=== PATIENT | male | born 1990 | race Two or more races ===

== ENCOUNTER 2018-02-17 08:11 | Outpatient (CLI) | payer OTHER ==
--- NOTE | 2018-02-17 16:02 | MRI Report ---
Reason: HEADACHE Procedure Date: 02/17/2018 Accession Number: [id number] / [id number] Procedure: MRI - Brain W/O CPT Code: FULL RESULT: EXAM: MRI BRAIN WITHOUT CONTRAST EXAM DATE: 02/17/2018 09:21 AM. CLINICAL HISTORY: Headache. COMPARISON: None. TECHNIQUE: Multiplanar, multisequence T1-weighted and fluid-sensitive MR sequences of the brain were performed. Sequences optimized for routine evaluation. Other: None. IV Contrast: None. FINDINGS: Brain Volume: Normal for age. Parenchyma/Dura: No mass, acute infarct or hemorrhage. Normal fofana matter and white matter signal intensity is identified. Ventricles/Cisterns: The ventricles, sulci, and cisterns are unremarkable. No abnormal extra-axial fluid collection or hemorrhage. Orbits: Symmetric and unremarkable. Sella Turcica: The pituitary gland, cavernous sinuses, suprasellar cistern and optic chiasm are unremarkable. IAC: Symmetric and unremarkable. Vasculature: Normal signal flow void is seen in the major arterial structures at the skull base. Sinuses: No acute appearing sinus disease. Bones: No focal pathologic appearing marrow signal changes. Other: None. IMPRESSION: 1. Normal noncontrast MRI of the brain. No acute abnormality. [facility]
== END 2018-02-17 08:12 | disposition home or self-care (01) ==
LOC: DI 08:11
PROVIDERS: ATTEND Radiology Diagnostic Radiology
DX: R51 Headache (principal)
CPT/HCPCS: 70551

== ENCOUNTER 2018-09-03 16:34 | Outpatient (CLI) | payer OTHER | END 2018-09-03 16:35 | disposition critical access hospital (66) | LOC: EMS 16:34 | PROVIDERS: ATTEND Surgery | DX: S61.451A Open bite of right hand, initial encounter (principal); W54.0XXA Bitten by dog, initial encounter; Y93.K9 Activity, other involving animal care; Y92.009 Unspecified place in unspecified non-institutional (private) residence as the place of occurrence of the external cause | CPT/HCPCS: A0425; A0429 ==

== ENCOUNTER 2018-09-03 16:55 | Emergency (ER) | payer OTHER ==
[2018-09-03] MEDS ORDERED: AMPICILLIN/SULBACTAM 3 GM in SODIUM CHLORIDE 0.9% MINIBAG 100 ML IV STA (16:57)
--- NOTE | 2018-09-03 16:58 | ED Physician Documentation ---
PD HPI UPPER EXT INJURY - Stated complaint Stated Complaint: DOG BITE - History obtained from History obtained from: Patient - History of Present Illness Location: Right (His own healthy fully immunized dog bit him on the right hand while he was giving him medication at home just prior to arrival. He is up-to-date on tetanus.) Review of Systems Ten Systems: 10 systems reviewed and negative Constitutional: reports: Reviewed and negative Eyes: reports: Reviewed and negative Ears: reports: Reviewed and negative Nose: reports: Reviewed and negative PD PAST MEDICAL HISTORY - Past Medical History Past Medical History: No - Present Medications Home Medications: Ambulatory Orders Medication Instructions Recorded Confirmed Amox/Clav 875/125 [Augmentin] 1 each PO Q12H #20 tablet 09/03/18 Hydrocodone/Acetaminophen 1 - 2 each PO Q6H PRN #14 tablet 09/03/18 [Hydrocodon-Acetaminophen 5-325] - Social History Does the pt drink ETOH?: No Does the pt have substance abuse?: No - Family History Family history: reports: Non contributory PD ED PE NORMAL - Vitals Vital signs reviewed: Yes - General General: Alert and oriented X 3, No acute distress - HEENT HEENT: PERRL, EOMI - Neck Neck: Supple, no meningeal sign, No bony TTP - Cardiac Cardiac: RRR, No murmur - Respiratory Respiratory: No respiratory distress, Clear bilaterally - Abdomen Abdomen: Normal bowel sounds, Soft, Non tender - Back Back: No CVA TTP, No spinal TTP - Derm Derm: Normal color, Warm and dry - Extremities Extremities: Other (On the dorsum of the right hand there is an oblique deep laceration extending from the third MCP down to the base of the metacarpal for the thumb. Extensor tendon is visualized and apparently intact on initial evaluation. There is also a laceration between the second third webspace of the fingers. Seems to have normal sensation and extensor tendon function of all the digits.) - Neuro Neuro: Alert and oriented X 3, Normal speech - Psych Psych: Normal mood, Normal affect Results - Vitals Vitals: Vital Signs - 24 hr 09/03/18 09/03/18 16:57 18:12 Temperature 36.6 C Heart Rate 77 87 Respiratory 20 18 Rate Blood Pressure 146/79 H 143/79 H O2 Saturation 97 97 Oxygen O2 Source Room air - Rads (name of study) 3v R hand Radiology: EMP read contemporaneously (no frx, fb) Procedures - Laceration (location) R hand Length in cm: 10 Wound type: Curved, Flap Neurovascular status: Sensory intact, Motor intact, Vascular intact Tendon involvement: Tendon intact Anesthesia: Lidocaine 1% with epi, With bicarb Wound Preparation: Irrigated copiously NS Skin layer closure: Nylon, Interrupted, Size #-0 - enter number (4-0), Sutures - enter # (26) Other: Tetanus UTD Complexity: Simple - Splint (location) r HAND Splint applied by: Tech Type of splint: Fiberglass, Short arm, Volar cock up Other: Patient tolerated well, No complications, Neurovascular intact PD MEDICAL DECISION MAKING - Consults Consults: Consulted (name) (Dr Godoy, [facility], ok to do in ED,no need for OR) Departure - Departure Disposition: 01 Home, Self Care Clinical Impression: Dog bite, hand Condition: Good Record reviewed to determine appropriate education?: Yes Instructions: ED Laceration Hand Prescriptions: Amox/Clav 875/125 [Augmentin] 1 each PO Q12H #20 tablet Hydrocodone/Acetaminophen [Hydrocodon-Acetaminophen 5-325] 1 - 2 each PO Q6H PRN #14 tablet PRN Reason: pain Comments: WOUND CHECK ON BASE ON WEDNESDAY Come back for any signs of infection which would include: Redness, swelling, drainage, increased pain, or fevers. You can wash it soap and water. Keep it covered and moist with bacitracin ointment which is available over the counter; avoid neosporin. Follow-up with your physician in ABOUT 14 days for suture removal. Discharge Date/Time: 09/03/18 18:52
[2018-09-03] MEDS ORDERED: HYDROmorphone 1 MG/ML CARPUJECT IVP STA (16:59)
[2018-09-03] MEDS ORDERED: LIDOCAINE 1%-EPI 1:100000 30 ML MDV SUBQ STA (17:14)
[2018-09-03] MEDS ORDERED: SODIUM BICARBONATE ABBOJECT 50 MEQ/50 ML SYRINGE IVP STA (17:14)
--- NOTE | 2018-09-03 17:22 | XRAY Report ---
Reason: dog bite hand Procedure Date: 09/03/2018 Accession Number: [id number] / [id number] Procedure: XR - Hand 3 View RT CPT Code: FULL RESULT: EXAM: RIGHT HAND RADIOGRAPHY EXAM DATE: 09/03/2018 05:08 PM. CLINICAL HISTORY: Dog bite hand. COMPARISON: None. TECHNIQUE: 3 views. FINDINGS: Bones: Normal. No fractures or bone lesions. Joints: Normal. No subluxations. Soft Tissues: There is soft tissue irregularity and swelling consistent with laceration injury of the dorsal hand. No radiodense foreign body. IMPRESSION: Laceration without fracture or foreign body. [facility]
[2018-09-03] MEDS ORDERED: SODIUM BICARBONATE ABBOJECT 50 MEQ/50 ML SYRINGE ONE (17:43)
[2018-09-03] MEDS ORDERED: AMOX/CLAV 875 MG/125 MG TABLET PO STA (18:06)
[2018-09-03] MEDS ORDERED: HYDROcod/ACET 5/325 Prepack 4 PO STA (18:06)
[2018-09-03 18:13] VITALS: BP 143/79
== END 2018-09-03 18:52 | disposition home or self-care (01) ==
LOC: EDUNIT# → ED 16:55
DX: S61.411A Laceration without foreign body of right hand, initial encounter (principal); W54.0XXA Bitten by dog, initial encounter; Y93.K9 Activity, other involving animal care; Y92.009 Unspecified place in unspecified non-institutional (private) residence as the place of occurrence of the external cause
CPT/HCPCS: 12004; 73130; 96365; 96366; 96375; 99283; A9270; J1170